=== PATIENT | male | born 1950 | race Caucasian/White ===

== ENCOUNTER → 2017-05-18 | Outpatient (CLI) | payer OTHER, MEDICARE ==
[~2017-05-18] MED LIST: ALPR1 PO; ASPI325 PO; ATEN50 PO; Atenolol50 MG PO; BUPR150ER PO; BUPROPION HCL XL PO; Budeprion Xl300 MG PO; CIPRO500 MG PO; CYCL10 PO; Cipro500 MG PO; Citalopram HBr20 MG PO; DICL75ER PO; Flagyl500 MG PO; GABA300 PO; IBUP600 PO; METCAR750 PO; Miralax17 GM PO; OXYC10ER PO; OXYC15ER PO; OXYC30 PO; OXYC40ER PO; Oxycodone HCl20 M1 PO; Oxycontin60 MG PO; PERCOCET 10/325 PO; Prednisone20 MG PO; Roxicodone5 MG PO; TAMS.4ER PO; TEMA30 PO; TERB250 PO; Tamiflu75 MG PO; VARE1 PO; ZOLP10 PO; Zolpidem Tartra10 MG PO
[2017-05-18 10:11] LABS: BASOPHILS ABSOLUTE AUTO 0.07 K/mm3 (0.00-0.23); BASOPHILS PERCENT AUTO 1 % (0-2); EOSINOPHILS ABSOLUTE AUTO 0.11 K/mm3 (0.00-0.68); EOSINOPHILS PERCENT AUTO 1 % (0-6); Hematocrit 42.7 % (37.0-53.0); Hemoglobin 14.2 g/dL (13.5-17.5); IMMATURE GRAN ABSOLUTE AUTO 0.09 K/mm3 (0.00-0.10); IMMATURE GRAN PERCENT AUTO 1 % (0-1); LYMPHOCYTES ABSOLUTE AUTO 2.07 K/mm3 (0.84-5.20); LYMPHOCYTES PERCENT AUTO 18 % (21-46); MONOCYTES ABSOLUTE AUTO 0.96 K/mm3 (0.16-1.47); MONOCYTES PERCENT AUTO 8 % (4-13); Mean Corpuscular HGB 32.3 pg (26.0-34.0); Mean Corpuscular HGB Conc 33.3 g/dL (31.5-36.5); Mean Corpuscular Volume 97 fL (80-100); NEUTROPHILS ABSOLUTE AUTO 8.17 K/mm3 (1.96-9.15); NEUTROPHILS PERCENT AUTO 71 % (41-73); Platelet Count 349 K/mm3 (150-400); RDW Coefficient Variation 13.4 % (11.7-14.2); White Blood Cell Count 11.47 K/mm3 (4.00-11.30)
[2017-05-18 10:22] LABS: Alanine Aminotransfer (ALT/SGP 45 U/L (12-78); Albumin, Blood 3.8 g/dL (3.4-5.0); Alk Phos 101 U/L (40-126); Anion Gap 9 mmol/L (6-16); Aspartate Aminotrans (AST/SGOT 22 U/L (12-37); Bilirubin, Total 0.4 mg/dL (0.1-1.0); Blood Urea Nitrogen 23 mg/dL (8-24); CO2, Blood 28 mmol/L (21-32); CPK Creatine Kinase 195 U/L (39-308); Calcium, Blood 8.8 mg/dL (8.5-10.1); Chloride, Blood 103 mmol/L (98-108); Creatinine, Blood 1.15 mg/dL (0.60-1.20); Glomerular Filtration Rate >60 (60-); Glucose, Blood 119 mg/dL (70-99); Potassium, Blood 4.1 mmol/L (3.5-5.5); Sodium, Blood 140 mmol/L (136-145)
[2017-05-18 10:51] LABS: Thyroid Stimulating Hormone 3.442 uIU/mL (0.360-4.800); Total Protein, Blood 7.8 g/dL (6.4-8.2); Troponin I <0.017 ng/mL (0.000-0.040)
== END | disposition home or self-care (01) ==
LOC: LAB EV 10:02
PROVIDERS: General Practice
DX: I48.91 Unspecified atrial fibrillation (principal); R53.81 Other malaise
CPT/HCPCS: 80053; 82550; 84443; 84484; 85025

== ENCOUNTER 2017-07-19 05:42 | Emergency (ER) | payer OTHER, MEDICARE ==
[~2017-07-19] VITALS: Ht 180.3 cm; Wt 99.8 kg
[2017-07-19 06:54] LABS: BASOPHILS PERCENT AUTO 1 % (0-2); EOSINOPHILS ABSOLUTE AUTO 0.08 K/mm3 (0.00-0.68); EOSINOPHILS PERCENT AUTO 1 % (0-6); Hematocrit 44.4 % (37.0-53.0); Hemoglobin 14.7 g/dL (13.5-17.5); IMMATURE GRAN ABSOLUTE AUTO 0.07 K/mm3 (0.00-0.10); IMMATURE GRAN PERCENT AUTO 1 % (0-1); LYMPHOCYTES ABSOLUTE AUTO 2.94 K/mm3 (0.84-5.20); LYMPHOCYTES PERCENT AUTO 22 % (21-46); MONOCYTES ABSOLUTE AUTO 1.68 K/mm3 (0.16-1.47); MONOCYTES PERCENT AUTO 13 % (4-13); Mean Corpuscular HGB 31.5 pg (26.0-34.0); Mean Corpuscular HGB Conc 33.1 g/dL (31.5-36.5); Mean Corpuscular Volume 95 fL (80-100); Mean Platelet Volume 10.5 fL (9.1-12.4); NEUTROPHILS ABSOLUTE AUTO 8.57 K/mm3 (1.96-9.15); NEUTROPHILS PERCENT AUTO 64 % (41-73); Platelet Count 466 K/mm3 (150-400); RDW Coefficient Variation 15.3 % (11.7-14.2); RDW Standard Deviation 53.4 fL (35.1-46.3); Red Blood Cell Count 4.67 M/mm3 (4.30-5.90); White Blood Cell Count 13.44 K/mm3 (4.00-11.30)
[2017-07-19 07:08] LABS: Alanine Aminotransfer (ALT/SGP 47 U/L (12-78); Alk Phos 87 U/L (50-136); Anion Gap 8 mmol/L (6-16); Aspartate Aminotrans (AST/SGOT 20 U/L (12-37); Bilirubin, Total 0.3 mg/dL (0.1-1.0); Blood Urea Nitrogen 23 mg/dL (8-24); Bun/Creatinine Ratio 18.7 (12.0-20.0); CO2, Blood 27 mmol/L (21-32); Chloride, Blood 103 mmol/L (98-108); Creatinine, Blood 1.23 mg/dL (0.60-1.20); Globulin, Blood 3.9 g/dL (2.2-4.0); Glomerular Filtration Rate >60 (60-); Glucose, Blood 85 mg/dL (70-99); Potassium, Blood 4.2 mmol/L (3.5-5.5); Sodium, Blood 138 mmol/L (136-145); Total Protein, Blood 7.9 g/dL (6.4-8.2)
== END 2017-07-19 08:20 | disposition home or self-care (01) ==
LOC: ER 05:42
PROVIDERS: Emergency Medicine
DX: M54.5 Low back pain (principal); G89.29 Other chronic pain; R41.82 Altered mental status, unspecified; G47.00 Insomnia, unspecified; Z79.899 Other long term (current) drug therapy; Z79.82 Long term (current) use of aspirin; Z79.52 Long term (current) use of systemic steroids; Z79.1 Long term (current) use of non-steroidal anti-inflammatories (NSAID); Z87.891 Personal history of nicotine dependence
CPT/HCPCS: 36415; 80053; 85025; 99283

== ENCOUNTER 2018-04-30 09:03 | Emergency (ER) | payer OTHER, MEDICARE ==
[~2018-04-30] VITALS: Ht 177.8 cm; Wt 86.2 kg
[~2018-04-30 09:03] MED LIST changes: +ALBU90OI61 INH; +Aspir 8181 MG PO; +BUPRENORPHINE HC8 MG SL; +DULO60 PO
[2018-04-30] MEDS ORDERED: BACL10 PO (10:21)
[2018-04-30] MEDS ORDERED: Lopressor 50 mg50 MG PO (10:23)
[2018-04-30 12:30] LABS: Source, Urine Clean Catch
[2018-04-30 12:41] LABS: Appearance, Urine Clear (Clear); Bilirubin, Urine Neg (Neg); Blood, Urine 1+ (Neg); Color, Urine Yellow (P-Yellow); Glucose Qualitative, Urine Neg (Neg); Ketones, Urine Neg (Neg); Leukocyte Esterase, Urine Neg (Neg); Nitrite, Urine Neg (Neg); Protein, Urine 1+ (Neg); Specific Gravity, Urine 1.025 (1.003-1.022); Urobilinogen, Urine NORM (Normal)
[2018-04-30 13:00] LABS: Bacteria Not Seen /hpf; Red Blood Cells, Urine 0-2 /hpf (0-2); Squamous Epithelial Cells Few /hpf (Few); White Blood Cells, Urine Not Seen /hpf (0-5)
[2018-04-30 13:20] LABS: Calcium, Ionized (POC) 1.19 mmol/L (1.10-1.46); Chloride (POC) 107 mmol/L (98-108); Creatinine (POC) 0.9 mg/dL (0.8-1.3); Glucose (ISTAT POC) 81 mg/dL (70-99); Hemoglobin (POC) 15.6 g/dL (13.5-17.5); Potassium (POC) 3.9 mmol/L (3.5-5.5); Sodium (POC) 142 mmol/L (135-148); Total CO2 (POC) 25 mmol/L (21-32)
[2018-04-30] MEDS ORDERED: Percocet 5-3251 EACH PO (15:44)
[2018-04-30] MEDS ORDERED: Voltaren100 GM TOP (15:44)
== END 2018-04-30 16:08 | disposition home or self-care (01) ==
LOC: ER 09:03
PROVIDERS: Physician Assistant
DX: M54.5 Low back pain (principal); G89.29 Other chronic pain; Z79.899 Other long term (current) drug therapy; Z79.82 Long term (current) use of aspirin; J44.9 Chronic obstructive pulmonary disease, unspecified; Z87.891 Personal history of nicotine dependence
CPT/HCPCS: 51798; 72128; 72131; 72157; 72158; 80047; 81001; 85014; 99284-25; A9577

== ENCOUNTER 2018-05-29 08:59 | Day surgery (SDC) | payer OTHER, MEDICARE ==
[~2018-05-29] VITALS: Ht 180.3 cm; Wt 90.6 kg
[~2018-05-29 08:59] MED LIST changes: +BACL10 PO; +Lopressor 50 mg50 MG PO; +Percocet 5-3251 EACH PO; +Voltaren100 GM TOP
--- NOTE | 2018-05-29 10:26 | NUR ---
05/29/18 1026 Jenn Sears PT RESTING IN PREOP WITH AT BEDSIDE
== END 2018-05-29 11:38 | disposition home or self-care (01) ==
LOC: ORSCSDS 08:59
PROVIDERS: Internal Medicine Gastroenterology
PROC: 0DBP8ZX Excision of Rectum, Via Natural or Artificial Opening Endoscopic, Diagnostic (ICD-10-PCS; principal; 2018-05-29 10:30)
PROC: 0DBL8ZX Excision of Transverse Colon, Via Natural or Artificial Opening Endoscopic, Diagnostic (ICD-10-PCS; principal; 2018-05-29 10:30)
PROC: 0DBK8ZX Excision of Ascending Colon, Via Natural or Artificial Opening Endoscopic, Diagnostic (ICD-10-PCS; principal; 2018-05-29 10:30)
DX: Z12.11 Encounter for screening for malignant neoplasm of colon (principal); Z86.010 Personal history of colon polyps; D12.3 Benign neoplasm of transverse colon; D12.2 Benign neoplasm of ascending colon; D12.8 Benign neoplasm of rectum; Z87.891 Personal history of nicotine dependence; J44.9 Chronic obstructive pulmonary disease, unspecified; Z79.899 Other long term (current) drug therapy; Z79.82 Long term (current) use of aspirin
CPT/HCPCS: 88305; J2250; J7120

== ENCOUNTER 2020-08-29 09:29 | Day surgery (SDC) | payer OTHER ==
[~2020-08-29] VITALS: Ht 175.3 cm; Wt 103.0 kg
[~2020-08-29 09:29] MED LIST changes: +ALBU90OI INH; +ELIQUIS5 MG PO; +Hair, Skin & N1 EACH PO; +MONT10T PO; +STIOLTO RESPIMAT4 G1 IH; +ZINC15 PO
--- NOTE | 2020-08-29 12:44 | NUR ---
PT SITTING IN RECLINER DRINKING COFFEE WITH CALL LIGHT IN REACH. PT DENIES CHEST PAIN. RIGHT RADIAL TR BAND SITE SOFT NON-TENDER WITH NO HEMATOMA, NO PULSATILE BLEEDING AND WRIST BOARD IN PLACE.
[2020-08-29] MEDS ORDERED: ISOSORBIDE MONO30 MG PO (12:48)
--- NOTE | 2020-08-29 13:38 | NUR ---
PT EYES CLOSED AND RESPIRATIONS EVEN AND UNLABORED. PT EASILY AWAKENED; NO CHANGES TO R RAD TR BAND SITE.
--- NOTE | 2020-08-29 14:40 | NUR ---
8 CC OF AIR REMOVED OVER 8 MIN OUT OF NOW DEFLATED RIGHT TR BAND. RIGHT RADIAL SITE SOFT NON-TENDER WITH NO HEMATOMA, NO PULSATILE BLEEDING. DISCHARGE INSTRUCTIONS REVIEWED AND ALL QUESTIONS ANSWERED. CALL LIGHT IN REACH.
--- NOTE | 2020-08-29 14:48 | NUR ---
NO CHANGES TO DEFLATED RIGHT TR BAND.
--- NOTE | 2020-08-29 15:39 | NUR ---
PT DRESSED, AMB TO BTR WELL, IV DC'D INTACT, R RADIAL TR BAND REMOVED, DRESSING AND SPLINT PLACED, PT DC'D BY WC BY THIS RN, DRIVING PT HOME NOW
== END 2020-08-29 14:45 | disposition home or self-care (01) ==
LOC: MHTC 09:29
PROC: 4A023N7 Measurement of Cardiac Sampling and Pressure, Left Heart, Percutaneous Approach (ICD-10-PCS; principal; 2020-08-29)
PROC: B2111ZZ Fluoroscopy of Multiple Coronary Arteries using Low Osmolar Contrast (ICD-10-PCS; principal; 2020-08-29)
DX: I25.119 Atherosclerotic heart disease of native coronary artery with unspecified angina pectoris (principal); I48.11 Longstanding persistent atrial fibrillation; J44.9 Chronic obstructive pulmonary disease, unspecified; R73.03 Prediabetes; Z87.891 Personal history of nicotine dependence; Z79.899 Other long term (current) drug therapy
CPT/HCPCS: 76937; 93458; 99152; 99153; A9270; C1769; C1894; J1644; J2250; J2370; J3010; J7030; J7050; Q9967

== ENCOUNTER → 2020-11-17 | Outpatient (CLI) | payer OTHER ==
[~2020-11-17] MED LIST changes: +ISOSORBIDE MONO30 MG PO
== END | disposition home or self-care (01) ==
LOC: LAB SHORT 11:53 → LAB 11:53
DX: R06.02 Shortness of breath (principal)
CPT/HCPCS: 87070; 87205

== ENCOUNTER 2021-12-22 08:44 | Day surgery (SDC) | payer OTHER ==
[~2021-12-22] VITALS: Ht 175.3 cm; Wt 99.3 kg
[2021-12-22] MEDS ORDERED: FINA5 PO (09:37)
--- NOTE | 2021-12-22 11:05 | NUR ---
PATIENT IS S/P DCCV, SINUS RHYTHM NOTED ON EKG. PIV REMOVED AND PRESSURE DRESSING APPLIED. DISCHARGED HOME WITH SHOPPER. FOLLOW UP APPOINTMENT IN TWO WEEKS.
== END 2021-12-23 00:30 | disposition home or self-care (01) ==
LOC: PRC 08:44 → MHTC 08:56 → PRC 12-23 00:30
DX: I48.0 Paroxysmal atrial fibrillation (principal); I25.119 Atherosclerotic heart disease of native coronary artery with unspecified angina pectoris; I10 Essential (primary) hypertension
CPT/HCPCS: 92960; 93005; 93010; 99152; 99153; J1742; J2250; J3010; J7030

== ENCOUNTER 2022-07-31 05:46 | Day surgery (SDC) | payer OTHER ==
[~2022-07-31] VITALS: Ht 175.3 cm; Wt 97.0 kg
[~2022-07-31 05:46] MED LIST changes: +FINA5 PO
[2022-07-31] MEDS ORDERED: ATOR20 PO (06:18)
[2022-07-31] MEDS ORDERED: DICL75ER PO (06:19)
[2022-07-31] MEDS ORDERED: FINA5 PO (06:20)
[2022-07-31] MEDS ORDERED: MOME220I INH ×2 (06:20→06:21)
[2022-07-31] MEDS ORDERED: SULTRIDS PO (06:21)
[2022-07-31] MEDS ORDERED: STIOLTO RESPIMAT4 G1 (06:22)
[2022-07-31 06:57] VITALS: BP 136/95
[2022-07-31 07:00] VITALS: BP 132/94
[2022-07-31 07:07] VITALS: BP 113/98
[2022-07-31 07:10] VITALS: BP 118/85
[2022-07-31 07:20] VITALS: BP 111/94
--- NOTE | 2022-07-31 07:45 | NUR ---
PT CARDIOVERTED X3 /C 200J. AFIB AT 65-70 BPM POST CARDIOVERSION. PT AND VERBALIZED UNDERSTANDING OF WRITTEN AND VERBAL D/C INST. IV REMOVED. PT TAKEN OUT OF THE [facility] VIA W/C.
== END 2022-07-31 08:26 | disposition home or self-care (01) ==
LOC: MHTC 05:46
DX: I48.11 Longstanding persistent atrial fibrillation (principal); R06.09 Other forms of dyspnea; I25.118 Atherosclerotic heart disease of native coronary artery with other forms of angina pectoris; I10 Essential (primary) hypertension; E78.5 Hyperlipidemia, unspecified
CPT/HCPCS: 92960; 93005; 93010; J2250; J2310; J3010; J7030

== ENCOUNTER → 2023-01-23 | Outpatient (CLI) | payer OTHER ==
[~2023-01-23] MED LIST changes: +ASCO500 PO; +ATOR20 PO; +Deltasone 10 mg10 MG PO; +FASENRA PE30 MG/1 ML SC; +HYDR1TAB94 PO; +MELATONIN5 M1 PO; +METO25 PO; +MOME220I INH; +MULTI-VITAMIN1 EAC2 PO; +POTA10T PO; +PRED20 PO; +PROBIOTIC1 EA13 PO; +STIOLTO RESPIMAT4 G1; +STIOLTO RESPIMAT4 G1 INH; +SULFAMETHOXAZO1 EAC1 PO; +SULTRIDS PO; +THERA-D2000 UNIT PO
== END ==
LOC: LAB SHORT 12:17 → LAB 12:17
DX: M70.21 Olecranon bursitis, right elbow (principal)
CPT/HCPCS: 87070; 87075; 87205

== ENCOUNTER 2023-02-12 10:40 | Emergency (ER) | payer OTHER ==
[~2023-02-12] VITALS: Ht 177.8 cm; Wt 99.8 kg
[2023-02-12 12:58] VITALS: BP 122/79
== END 2023-02-12 13:19 | disposition home or self-care (01) ==
LOC: ER 10:40
DX: M19.041 Primary osteoarthritis, right hand (principal); Z87.891 Personal history of nicotine dependence
CPT/HCPCS: 73100; 99283-25

== ENCOUNTER 2023-03-22 11:54 | Emergency (ER) | payer OTHER ==
[~2023-03-22] VITALS: Ht 177.8 cm; Wt 97.5 kg
[2023-03-22 13:10] LABS: Alanine Aminotransfer (ALT/SGP 44 U/L (12-78); Albumin, Blood 3.3 g/dL (3.4-5.0); Albumin/Globulin Ratio 0.9 (0.8-1.8); Alk Phos 48 U/L (50-136); Anion Gap 6 mmol/L (6-16); Aspartate Aminotrans (AST/SGOT 28 U/L (12-37); Bilirubin, Total 0.5 mg/dL (0.1-1.0); Blood Urea Nitrogen 13 mg/dL (8-24); C-REACTIVE PROTEIN, EXT RANGE <0.290 mg/dL (0.000-0.300); CO2, Blood 28 mmol/L (21-32); Calcium, Blood 8.4 mg/dL (8.5-10.1); Chloride, Blood 104 mmol/L (98-108); Creatinine, Blood 1.08 mg/dL (0.60-1.20); Globulin, Blood 3.5 g/dL (2.2-4.0); Glomerular Filtration Rate 73 (60-); Glucose, Blood 87 mg/dL (70-99); Potassium, Blood 4.6 mmol/L (3.5-5.5); Sodium, Blood 138 mmol/L (136-145); Total Protein, Blood 6.8 g/dL (6.4-8.2)
[2023-03-22 14:20] LABS: BASOPHILS ABSOLUTE AUTO 0.04 K/mm3 (0.00-0.23); BASOPHILS PERCENT AUTO 1 % (0-2); EOSINOPHILS ABSOLUTE AUTO 0.02 K/mm3 (0.00-0.68); EOSINOPHILS PERCENT AUTO 0 % (0-6); Hematocrit 44.9 % (37.0-53.0); IMMATURE GRAN ABSOLUTE AUTO 0.07 K/mm3 (0.00-0.10); IMMATURE GRAN PERCENT AUTO 1 % (0-1); LYMPHOCYTES ABSOLUTE AUTO 0.92 K/mm3 (0.84-5.20); LYMPHOCYTES PERCENT AUTO 11 % (21-46); MONOCYTES ABSOLUTE AUTO 0.47 K/mm3 (0.16-1.47); MONOCYTES PERCENT AUTO 6 % (4-13); Mean Corpuscular HGB 33.5 pg (26.0-34.0); Mean Corpuscular HGB Conc 33.4 g/dL (31.5-36.5); Mean Corpuscular Volume 100 fL (80-100); Mean Platelet Volume 10.1 fL (9.1-12.4); NEUTROPHILS ABSOLUTE AUTO 6.78 K/mm3 (1.96-9.15); NEUTROPHILS PERCENT AUTO 82 % (41-73); Platelet Count 273 K/mm3 (150-400); RDW Coefficient Variation 14.2 % (11.7-14.2); RDW Standard Deviation 52.5 fL (35.1-46.3); Red Blood Cell Count 4.48 M/mm3 (4.30-5.90)
[2023-03-22] MEDS ORDERED: CEPH500 PO (14:53)
[2023-03-22 15:30] VITALS: BP 123/111
== END 2023-03-22 15:34 | disposition home or self-care (01) ==
LOC: ER 11:54
PROVIDERS: Student in an Organized Health Care Education/Training Program
DX: M70.21 Olecranon bursitis, right elbow (principal); L03.113 Cellulitis of right upper limb; J44.9 Chronic obstructive pulmonary disease, unspecified; Z79.52 Long term (current) use of systemic steroids; Z79.899 Other long term (current) drug therapy
CPT/HCPCS: 80053; 85025; 85651; 86140; 96365; 99283-25; J0690

== ENCOUNTER 2023-07-21 11:06 | Emergency (ER) | payer OTHER ==
[~2023-07-21] VITALS: Ht 177.8 cm; Wt 95.2 kg
[~2023-07-21 11:06] MED LIST changes: +CEPH500 PO; +ONDA4 PO
[2023-07-21] MEDS ORDERED: Amiodarone HCl200 MG PO (11:15)
[2023-07-21] MEDS ORDERED: ELIQUIS5 M2 PO (11:16)
[2023-07-21] MEDS ORDERED: SULTRIDS PO (11:17)
[2023-07-21 14:00] VITALS: BP 121/92
[2023-07-21] MEDS ORDERED: OxyCODONE 5 mg/Acetamin 325 mg TABLET PO ONE (14:00)
[2023-07-21] MEDS ORDERED: OXYC5 PO (14:03)
[2023-07-22] MEDS ORDERED: OXYC5 PO (11:04)
== END 2023-07-21 14:33 | disposition home or self-care (01) ==
LOC: ER 11:06
DX: M87.9 Osteonecrosis, unspecified (principal)
CPT/HCPCS: 73502; 73700; 99284-25; A9270

== ENCOUNTER 2023-11-11 06:12 | Day surgery (SDC) | payer OTHER ==
[2023-11-11] VITALS (16 sets, daily range): BP systolic 91–141; BP diastolic 69–86
[~2023-11-11] VITALS: Ht 177.8 cm; Wt 101.0 kg
[~2023-11-11 06:12] MED LIST changes: +Amiodarone HCl200 MG PO; +DOXY100 PO; +ELIQUIS5 M2 PO; +FURO20 PO; +Norco 10-325 T1 EACH PO; +OXYC5 PO; +POTCHL20ER PO; +PRO AIR INH; +VITAMIN D PO; +ZINC PO
[2023-11-11] MEDS ORDERED: Chlorhexidine Mouth Care 15 ML UDC MT SCH (06:30)
[2023-11-11] MEDS ORDERED: OxyCODONE HCL 10 MG TABCR PO SCH (06:30)
[2023-11-11] MEDS ORDERED: Lactated Ringer's 1,000 ML IV SCH ×2 (06:30→08:00)
[2023-11-11] MEDS ORDERED: Acetaminophen 500 MG Tab PO SCH ×2 (06:30→08:00)
[2023-11-11] MEDS ORDERED: CeFAZolin Sodium 2,000 MG in NS 100 ML IV SCH ×2 (06:30→16:00)
[2023-11-11] MEDS ORDERED: Ropivacaine 0.5% HCl/Pf 123.125 MG,EPINEPHrine HCL 0.25 MG,Ketorolac Tromethamine 15 MG... INFIL SCH (06:30)
[2023-11-11] MEDS ORDERED: TRANEXAMIC ACID IV SCH (06:40)
[2023-11-11] MEDS ORDERED: NS IV SCH (06:40)
[2023-11-11] MEDS ORDERED: Tranexamic Acid 100 ML IV SCH (06:55)
[2023-11-11] MEDS ORDERED: Bupivacaine 0.5% HCl 5 MG/ML 30MLVIAL ONE (07:07)
[2023-11-11] MEDS ORDERED: Lidocaine 2%-Epineph 1:200000 20 ML SDV ONE (07:07)
[2023-11-11] MEDS ORDERED: Ondansetron HCl 2 MG / ML 2ML Vial ONE (07:07)
[2023-11-11] MEDS ORDERED: Dexamethasone Sod Phos 10 MG/ML 1ML VIAL ONE (07:07)
[2023-11-11] MEDS ORDERED: propofoL 20 ML IV ONE (07:12)
[2023-11-11] MEDS ORDERED: FentaNYL Citrate 50 MCG/ML 2 ML Injection ONE (07:12)
[2023-11-11] MEDS ORDERED: Bupivacaine HCl 2.5 MG/ML 10ML P/F Injection ONE (07:41)
[2023-11-11] MEDS ORDERED: Albuterol 2.5 MG/3 ML VIAL INH PRN (07:50)
[2023-11-11] MEDS ORDERED: OxyCODONE HCL 5 MG TAB PO PRN ×2 (07:50)
[2023-11-11] MEDS ORDERED: Promethazine HCl 25 MG Tab PO PRN (07:55)
[2023-11-11] MEDS ORDERED: Ondansetron HCl 2 MG / ML 2ML Vial IV PRN (07:55)
[2023-11-11] MEDS ORDERED: DiphenhydrAMINE HCL 25 MG Cap PO PRN (07:55)
[2023-11-11] MEDS ORDERED: Bisacodyl 10 MG Supp PR PRN (07:55)
[2023-11-11] MEDS ORDERED: Prochlorperazine Edisylate 10 mg Vial IV PRN (07:55)
[2023-11-11] MEDS ORDERED: Magnesium Hydroxide Conc 10 ML UDC PO PRN (08:00)
[2023-11-11] MEDS ORDERED: HYDROmorphone HCl/Pf 1MG SYR IV PRN (08:00)
[2023-11-11] MEDS ORDERED: Metoclopramide HCl 5MG / ML 2ML Vial IV PRN (08:00)
[2023-11-11] MEDS ORDERED: ePHEDrine Sulfate 50 MG/ML 1ML Injection ONE (08:09)
--- NOTE | 2023-11-11 08:19 | NUR ---
History, Chart, Medications and Allergies reviewed before start of procedure. PT TO UNIT VIA W/C WITH . PT ABLE TO TRANSFER TO R HIMSELF. DENURES REMOVED AND PLACED IN PT BELONGING BAG ALONG WITH GLASSES. HEARING AIDS REMAINED IN PLACE WHEN SENT TO OR. Pre-Op teaching done. Pt verbalizes understanding. PT AND SPOUSE DENY ANY ADDITIONAL NEEDS.
[2023-11-11] MEDS ORDERED: HYDROmorphone HCl/Pf 1MG SYR ONE (08:53)
--- NOTE | 2023-11-11 08:59 | NUR ---
11/11/23 0859 Heaven Blanco PATIENT ARRIVED TO OR WITH SCATTERED RASH OVER WHOLE BODY. DR.WILLIAMS OROZCO.
[2023-11-11] MEDS ORDERED: Docusate Sodium 100 MG Cap PO SCH (09:00)
[2023-11-11] MEDS ORDERED: Phenylephrine HCl 100 MCG/ML-NS 10MLSYR (1MG/10ML) ONE (09:58)
[2023-11-11] MEDS ORDERED: Ketorolac Tromethamine 15mg Vial IV SCH (12:00)
[2023-11-11] MEDS ORDERED: Furosemide 20 MG Tab PO SCH (18:00)
--- NOTE | 2023-11-11 18:33 | NUR ---
SHIFT SUMMARY UNFORTUNATLY PT WAS UNABLE TO WORK w/ THERAPY HIS R THIGH IS STILL NUMB R/T BLOCK. PAIN WELL CONTROLLED. EATING, DRINKING, & I/O CATH HIMSELF HE DOES AT HOME.
[2023-11-11] MEDS ORDERED: Metoprolol Tartrate 25 MG Tab PO SCH (21:00)
[2023-11-12 02:27] VITALS: BP 99/72
[2023-11-12 04:29] LABS: BASOPHILS ABSOLUTE AUTO 0.02 K/mm3 (0.00-0.23); BASOPHILS PERCENT AUTO 0 % (0-2); EOSINOPHILS ABSOLUTE AUTO 0.01 K/mm3 (0.00-0.68); EOSINOPHILS PERCENT AUTO 0 % (0-6); Hematocrit 30.4 % (37.0-53.0); Hemoglobin 10.1 g/dL (13.5-17.5); IMMATURE GRAN ABSOLUTE AUTO 0.04 K/mm3 (0.00-0.10); IMMATURE GRAN PERCENT AUTO 0 % (0-1); LYMPHOCYTES ABSOLUTE AUTO 0.64 K/mm3 (0.84-5.20); LYMPHOCYTES PERCENT AUTO 6 % (21-46); MONOCYTES ABSOLUTE AUTO 1.19 K/mm3 (0.16-1.47); MONOCYTES PERCENT AUTO 11 % (4-13); Mean Corpuscular HGB 32.1 pg (26.0-34.0); Mean Corpuscular HGB Conc 33.2 g/dL (31.5-36.5); Mean Corpuscular Volume 97 fL (80-100); Mean Platelet Volume 10.7 fL (9.1-12.4); NEUTROPHILS ABSOLUTE AUTO 8.76 K/mm3 (1.96-9.15); NEUTROPHILS PERCENT AUTO 82 % (41-73); Platelet Count 256 K/mm3 (150-400); RDW Coefficient Variation 13.4 % (11.7-14.2); RDW Standard Deviation 47.6 fL (35.1-46.3); Red Blood Cell Count 3.15 M/mm3 (4.30-5.90); White Blood Cell Count 10.66 K/mm3 (4.00-11.30)
--- NOTE | 2023-11-12 04:55 | NUR ---
SUMMARY- PT PAIN MANANGED WELL. PT HAS BEEN ABLE TO SELF CATH WITHOUT ISSUE. PT HAS AMBULATED WITH GB AND FWW. PT IS HESITANT AND FEARFUL AMBULATING. PT HAS BEEN RESTING COMFORTABLY. CALL LIGHT IN REACH.
[2023-11-12 04:59] LABS: Bun/Creatinine Ratio 12.4 (12.0-20.0); Calcium, Blood 8.1 mg/dL (8.5-10.1); Creatinine, Blood 1.37 mg/dL (0.60-1.20); Magnesium, Blood 2.3 mg/dL (1.6-2.4); Potassium, Blood 4.6 mmol/L (3.5-5.5)
[2023-11-12 07:14] VITALS: BP 95/74
[2023-11-12 07:15] VITALS: BP 97/67
[2023-11-12] MEDS ORDERED: Potassium Chloride 20 MEQ TabCR PO SCH (09:00)
[2023-11-12] MEDS ORDERED: Apixaban 5 MG Tab PO SCH (10:00)
[2023-11-12] MEDS ORDERED: ACET500 PO (10:22)
[2023-11-12] MEDS ORDERED: OXYC5 PO (10:22)
[2023-11-12] MEDS ORDERED: ASPI81CH PO (10:22)
[2023-11-12 10:52] VITALS: BP 102/73
--- NOTE | 2023-11-12 11:14 | NUR ---
DISCHARGE PT WORKED w/ THERAPY. PAIN WELL CONTROLLED. EATING, DRINKING, & VOIDING WELL. ALICE & POLAR PACK SENT w/ PT. ESCORTED OUT VIA W/C.
== END 2023-11-12 11:14 | disposition home or self-care (01) ==
LOC: ORSCMMR 06:12 → ORD 07:30 → SURS 10:44 → ORSCMMR 11-12 11:14 → ORD 12-16 11:45
PROVIDERS: Orthopaedic Surgery
PROC: 0SR90JZ Replacement of Right Hip Joint with Synthetic Substitute, Open Approach (ICD-10-PCS; principal; 2023-11-11 07:30)
DX: M16.11 Unilateral primary osteoarthritis, right hip (principal); W06.XXXA Fall from bed, initial encounter; I48.91 Unspecified atrial fibrillation; J44.9 Chronic obstructive pulmonary disease, unspecified; I12.9 Hypertensive chronic kidney disease with stage 1 through stage 4 chronic kidney disease, or unspecified chronic kidney disease; N18.9 Chronic kidney disease, unspecified; R73.03 Prediabetes; E66.9 Obesity, unspecified; Z68.32 Body mass index [BMI] 32.0-32.9, adult; Z79.01 Long term (current) use of anticoagulants; Z79.899 Other long term (current) drug therapy; Z87.891 Personal history of nicotine dependence
CPT/HCPCS: 36415; 72170; 80048; 83735; 85025; 97110; 97116; 97162; 97530; A9270; C1713; C1776; J0171; J0690; J0735; J1100; J1170; J1885; J2371; J2405; J2704; J2795; J3010; J7120

== ENCOUNTER 2024-06-25 06:09 | Day surgery (SDC) | payer OTHER ==
[~2024-06-25] VITALS: Ht 177.8 cm; Wt 99.2 kg
[~2024-06-25 06:09] MED LIST changes: +ACET500 PO; +ASPI81CH PO; +Balanced Salt Epinephrine Irrigation Solution 500 mL IR SCH; +Diazepam 10 MG Tab ONE; +Diazepam 5 MG Tab PO PRN; +Diazepam 5 MG Tab PO SCH; +Lidocaine HCl/Pf 1% 5 ML VIAL XX SCH; +Moxifloxacin HCL 0.5 MG/0.1 ML 0.4MLSYR RIGHTEYE SCH; +Ondansetron 4 MG SoluTab MM PRN; +PHENYLEPHRINE\\TROPICAMIDE\\TETRACAINE OPHTHALMIC DILATING SOLN RIGHTEYE PRN; +Povidone-Iodine 450 DROP/30 ML Solution ONE; +Povidone-Iodine 450 DROP/30 ML Solution RIGHTEYE SCH; +Tetracaine HCl/Pf 0.5% Opth Soln 4 ml ONE; +Triamcinolone Inj Susp 40 MG / ML 1ML Vial INJ SCH; +diazePAM 2 MG,diazePAM 5 MG PO SCH
[2024-06-25] MEDS ORDERED: CALCIUM CARBON500 M1 (06:36)
[2024-06-25] MEDS ORDERED: Triamcinolone Inj Susp 40 MG / ML 1ML Vial ONE (06:42)
[2024-06-25] MEDS ORDERED: Lidocaine HCl/Pf 1% 5 ML VIAL ONE (06:43)
[2024-06-25] MEDS ORDERED: Diazepam 5 MG Tab ONE (07:17)
--- NOTE | 2024-06-25 08:11 | NUR ---
06/25/24 0811 HUEY BEASLEY ANXIETY 07/02
--- NOTE | 2024-06-25 08:14 | NUR ---
06/25/24 0814 Lilliana Jenkins VITAL SIGNS @ 0813 BP: 112/80 O2 SAT: 95 PULSE: 86 BLOW-BY OXYGEN AT 10 LITERS
[2024-06-25 08:50] VITALS: BP 105/76
== END 2024-06-25 09:00 | disposition home or self-care (01) ==
LOC: ORSCSDS 06:09
PROVIDERS: Ophthalmology
PROC: 08RJ3JZ Replacement of Right Lens with Synthetic Substitute, Percutaneous Approach (ICD-10-PCS; principal; 2024-06-25 07:30)
DX: H25.813 Combined forms of age-related cataract, bilateral (principal); H52.201 Unspecified astigmatism, right eye; R73.03 Prediabetes; I48.91 Unspecified atrial fibrillation; Z79.01 Long term (current) use of anticoagulants; Z79.899 Other long term (current) drug therapy
CPT/HCPCS: A9270; J2003; J3301; V2632

== ENCOUNTER 2024-07-02 11:11 | Day surgery (SDC) | payer OTHER ==
[~2024-07-02] VITALS: Ht 177.8 cm; Wt 99.9 kg
[~2024-07-02 11:11] MED LIST changes: +CALCIUM CARBON500 M1; -Diazepam 10 MG Tab ONE; +Lidocaine HCl/Pf 1% 5 ML VIAL ONE; +Moxifloxacin HCL 0.5 MG/0.1 ML 0.4MLSYR LEFTEYE SCH; -Moxifloxacin HCL 0.5 MG/0.1 ML 0.4MLSYR RIGHTEYE SCH; +NS 500 ML IV ONE; +PHENYLEPHRINE\\TROPICAMIDE\\TETRACAINE OPHTHALMIC DILATING SOLN LEFTEYE PRN; -PHENYLEPHRINE\\TROPICAMIDE\\TETRACAINE OPHTHALMIC DILATING SOLN RIGHTEYE PRN; +Povidone-Iodine 450 DROP/30 ML Solution LEFTEYE SCH; -Povidone-Iodine 450 DROP/30 ML Solution RIGHTEYE SCH; +Triamcinolone Inj Susp 40 MG / ML 1ML Vial ONE; -diazePAM 2 MG,diazePAM 5 MG PO SCH
[2024-07-02] MEDS ORDERED: NS 500 ML IV ONE (12:07)
--- NOTE | 2024-07-02 12:14 | NUR ---
07/02/24 1214 Leona Lemons IN AT 1154. TENZIN IN AT 1156 CALL LIGHT AT BEDSIDE
[2024-07-02] MEDS ORDERED: FentaNYL Citrate 50 MCG/ML 2 ML Injection ONE (12:19)
[2024-07-02] MEDS ORDERED: Midazolam HCl 1MG / ML 2ML Vial ONE ×2 (12:19→12:31)
[2024-07-02 12:49] VITALS: BP 102/77
== END 2024-07-02 13:03 | disposition home or self-care (01) ==
LOC: ORSCSDS 11:11
PROVIDERS: Ophthalmology
PROC: 08RK3JZ Replacement of Left Lens with Synthetic Substitute, Percutaneous Approach (ICD-10-PCS; principal; 2024-07-02 12:30)
DX: H25.812 Combined forms of age-related cataract, left eye (principal); Z96.1 Presence of intraocular lens; H52.202 Unspecified astigmatism, left eye; H40.003 Preglaucoma, unspecified, bilateral; I48.91 Unspecified atrial fibrillation; R06.02 Shortness of breath; I10 Essential (primary) hypertension; J45.909 Unspecified asthma, uncomplicated; Z87.891 Personal history of nicotine dependence; Z79.01 Long term (current) use of anticoagulants; Z79.899 Other long term (current) drug therapy
CPT/HCPCS: 82947; J2003; J2250; J3010; J3301; J7040; V2632